=== PATIENT | male | born 1950 | race Caucasian/White ===

== ENCOUNTER 2017-02-06 12:49 | Emergency (ER) | payer OTHER ==
[~2017-02-06] VITALS: Ht 180.3 cm; Wt 104.3 kg
--- NOTE | 2017-02-06 13:38 | ED UPPER/LOWER EXTREMITY COMPL ---
History of Present Illness General Chief Complaint: Foot or Ankle Injury Stated Complaint: L FOOT INJURY Source: patient Exam Limitations: no limitations Vital Signs & Intake/Output Vital Signs & Intake/Output Vital Signs Date Time Temp Pulse Resp B/P B/P Pulse O2 O2 Flow FiO2 Mean Ox Delivery Rate 02/06 1518 98.4 69 18 171/79 100 Room Air 02/06 1253 99.2 79 18 153/87 98 Room Air Allergies Coded Allergies: NO KNOWN ALLERGIES (01/05/16) Reconcile Medications Amlodipine Besylate 5 MG TABLET 1 TAB PO QPM HEART (Reported) Cephalexin (Keflex) 500 MG CAPSULE 1 CAP PO BID CELLULITIS Sulfamethoxazole/Trimethoprim (Bactrim Ds Tablet) 800 MG-160 MG TABLET 1 TAB PO BID PRN CELLULITIS Triage Note: 66 YO MALE TO ER C/O L FOOT PAIN. STATES HE FELL LAST WEEK AND HIS L FOOT IS SWOLLEN AND RED NOW. Triage Nurses Notes Reviewed? yes Onset: Abrupt Duration: getting worse Timing: recent history Severity Numbers: 10 HPI: Patient is a 66-year-old male with a past medical history of hypertension and ascites who presents to emergency room stating that 1 week ago patient was ambulating upstairs where he accidentally struck the left dorsal aspect of his foot to the corner of a concrete step which he stops, he fell forward striking the left knee to the stairs. Patient presents to emergency room with complaints of worsening left knee ankle and foot pain and swelling and redness to the foot. Patient denies any shortness of breath cough fever chills. (LIZZETTE COLLINS) Past History Travel History Traveled to [place] past 21 day No Medical History Any Pertinent Medical History? see below for history Neurological: NONE EENT: NONE Cardiovascular: hypertension Respiratory: NONE Gastrointestinal: NONE Hepatic: NONE Renal: NONE Musculoskeletal: NONE Psychiatric: NONE Endocrine: NONE Blood Disorders: NONE Cancer(s): NONE WARP HANGER/Reproductive: NONE Surgical History Surgical History: non-contributory Psychosocial History What is your primary language Sri Lankan Tobacco Use: Never used Family History Hx Contributory? No (LIZZETTE COLLINS) Review of Systems Review of Systems Constitutional: Reports: no symptoms. EENTM: Reports: no symptoms. Respiratory: Reports: no symptoms. Cardiovascular: Reports: see HPI, peripheral edema. Gastrointestinal/Abdominal: Reports: no symptoms. Genitourinary: Reports: no symptoms. Musculoskeletal: Reports: see HPI, joint pain, joint swelling. Skin: Reports: see HPI, erythema. Neurological/Psychological: Reports: no symptoms. Hematologic/Endocrine: Reports: no symptoms. Immunological: Reports: no symptoms. All Other Systems: Reviewed and Negative (LIZZETTE COLLINS) Physical Exam Physical Exam General Appearance: no apparent distress, obese Neurologic/Tendon: normal sensation, normal motor functions, normal tendon functions, responds to pain, no evidence tendon injury Comments: HEENT: Normal EENT exam,. Neck: Supple, no lymphadenopathy, normal range of motion without pain or tenderness Back: Nontender, no CVA tenderness. Cardiovascular: Regular rate and rhythms no murmurs rubs or gallops, normal JVP Respiratory: Chest nontender. No respiratory distress.breath sounds clear to auscultation bilaterally Abdomen: Soft, nontender nondistended, no appreciable organomegaly. Normal bowel sounds. No ascites Extremity: Left knee-medial joint line tenderness and ecchymosis noted negative valgus stress test negative varus stress test negative anterior drawer test negative posterior drawer test mild decreased active range of motion Left ankle noted generalized swelling and generalized point tenderness noted Left foot dorsal aspect of foot noted erythema warmth and tenderness pedal pulse +2 dermatomes intact capillary refill less than 2 seconds GENERALIZED point tenderness noted Neuro: Alert oriented x3, motor sensory normal, Psych: Mood and affect is normal, memory and judgment is normal. (LIZZETTE COLLINS) Progress Differential Diagnosis: arterial insufficiency, cellulitis, CHF, compartment syndrome, contusion, dislocation, DVT, fracture, gout, septic arthritis, sprain, tendon injury Plan of Care: Orders Procedure Date/time Status COMPREHENSIVE METABOLIC PANEL 02/06 1353 Complete CBC WITHOUT DIFFERENTIAL 02/06 1353 Complete Laboratory Tests 02/06/17 1455: Anion Gap 11, Estimated GFR > 60, BUN/Creatinine Ratio 11.4, Glucose 91, Calcium 8.5, Total Bilirubin 2.3 H, AST 73 H, ALT 45, Alkaline Phosphatase 142 H, Total Protein 6.8, Albumin 3.6, Globulin 3.2, Albumin/Globulin Ratio 1.1, CBC w Diff NO MAN DIFF REQ, RBC 4.19 L, MCV 85.8, MCH 28.2, RDW 14.8 H, MPV 7.9, Gran % 72.2, Lymphocytes % 17.2 L, Monocytes % 8.1, Eosinophils % 2.1, Basophils % 0.4, Absolute Granulocytes 4.4, Absolute Lymphocytes 1.1 L, Absolute Monocytes 0.5, Absolute Eosinophils 0.1, Absolute Basophils 0, PUBS MCHC 32.8 L Ultrasound was unremarkable for DVT. X-rays are unremarkable for for osseous injury. Due to history of present illness and exam findings there is suspicion of left dorsal aspect of foot cellulitis. Surgical pen markings bordered the erythema Patient was afebrile no concerns of leukocytosis. Patient does state that he has a history of MRSA in which he'll be covered with Keflex and Bactrim. He is strongly advised to follow-up with primary care doctor or return to emergency room as discussed in disposition plan (DARIUS ARCHER,LIZZETTE) Diagnostic Imaging: Viewed by Me: Radiology Read. Radiology Impression: no acute abnormality, no fracture Comments: PATIENT: LISA BENAVIDEZ PRESENT AGE: 66 PATIENT ACCOUNT NO: [id number] : 52 LOCATION: [facility] ORDERING PHYSICIAN: LIZZETTE ARCHER SERVICE DATE: 02/06/17 EXAM TYPE: US - US-UNILATERAL VENOUS DOPPLER EXAMINATION: US TRIPLEX LOWER EXTREMITY, LEFT CLINICAL INFORMATION: Left lower extremity swelling. Evaluate for DVT. COMPARISON: No relevant prior imaging is available. TECHNIQUE: Color-flow triplex imaging with spectral analysis and compression Doppler were performed on the lower extremity. FINDINGS: The visualized common femoral vein, superficial femoral vein, profunda femoral vein, popliteal vein and midcalf peroneal and posterior tibial venous segments show no evidence of deep venous thrombosis. There is no Novoa's cyst. IMPRESSION: No evidence of deep venous thrombosis within the lower extremity. DICTATED BY: JOE CONNOR,DARIO Mac DATE/TIME DICTATED:02/06/171438 BATTERY HAND:RUTH DATE/TIME TRANSCRIBED:02/06/17 PATIENT: LISA BENAVIDEZ PRESENT AGE: 66 PATIENT ACCOUNT NO: [id number] : 52 LOCATION: [facility] ORDERING PHYSICIAN: LIZZETTE ARCHER SERVICE DATE: 02/06/17 EXAM TYPE: RAD - XRY-ANKLE 3 OR MORE VIEWS L; XRY-FOOT COMPLETE, LEFT; XRY-KNEE COMPLETE LEFT EXAMINATION: XR KNEE, ANKLE, FOOT, LEFT CLINICAL INFORMATION: Status post fall. COMPARISON: None TECHNIQUE: Four views of the left knee. 3 views of the ankle. 3 views foot. FINDINGS: Bone mineral density is maintained without evidence of fracture or dislocation. No focal osseous lesions are seen. Joint space is maintained without productive or erosive changes. There is mild soft tissue prominence in the ankle. There are mild degenerative changes in the foot most notably in the mid foot and first MTP joint with a small bunion with mild metatarsus primus varus with hallux is deformity. IMPRESSION: No acute fracture or dislocation is seen. DICTATED BY: NEFTALI TENORIO MD DATE/TIME DICTATED:02/06/171430 BATTERY HAND:RUTH DATE/TIME TRANSCRIBED:02/06/171430 (LIZZETTE COLLINS) Departure Departure Disposition: HOME OR SELF CARE Condition: Stable Clinical Impression Primary Impression: Cellulitis of left foot Referrals: ELOY CONNOR,Kevin PACK (PCP/Family) Additional Instructions: As discussed begin to elevate foot for swelling. Begin using the Dev wrap provided to the emergency room for swelling. Begin the prescription of BACTRIM and Keflex as directed. Prescription is waiting AT [facility]. If symptoms worsen or if YOU develop any new concerning symptoms or if the redness expands beyond the surgical pen markers boarded in the emergency room return to emergency room immediately. In 2 days if no better follow-up with primary care doctor or return to the emergency room. Departure Forms: Customer Survey General Discharge Information Prescriptions: Current Visit Scripts Cephalexin (Keflex) 1 CAP PO BID #20 CAP Sulfamethoxazole/Trimethoprim (Bactrim Ds Tablet) 1 TAB PO BID PRN CELLULITIS #20 TAB (LIZZETTE COLLINS) PA/[facility] Co-Sign Statement Statement: ED Attending supervision documentation- x I saw and evaluated the patient. I have also reviewed all the pertinent lab results and diagnostic results. I agree with the findings and the plan of care as documented in the PA's/[facility]'s documentation. [] I have reviewed the ED Record and agree with the PA's/[facility]'s documentation. [] Additions or exceptions (if any) to the PAs/[facility]'s note and plan are summarized below: [] (ARISTIDES CONNOR,MAITE)
[2017-02-06] MEDS ORDERED: AMLODIPINE BESYL5 M1 PO (13:45)
--- NOTE | 2017-02-06 14:39 | RADIOLOGY REPORT ---
EXAMINATION: XR KNEE, ANKLE, FOOT, LEFT CLINICAL INFORMATION: Status post fall. COMPARISON: None TECHNIQUE: Four views of the left knee. 3 views of the ankle. 3 views foot. FINDINGS: Bone mineral density is maintained without evidence of fracture or dislocation. No focal osseous lesions are seen. Joint space is maintained without productive or erosive changes. There is mild soft tissue prominence in the ankle. There are mild degenerative changes in the foot most notably in the mid foot and first MTP joint with a small bunion with mild metatarsus primus varus with hallux is deformity. IMPRESSION: No acute fracture or dislocation is seen.
--- NOTE | 2017-02-06 14:44 | ULTRASOUND REPORT ---
EXAMINATION: US TRIPLEX LOWER EXTREMITY, LEFT CLINICAL INFORMATION: Left lower extremity swelling. Evaluate for DVT. COMPARISON: No relevant prior imaging is available. TECHNIQUE: Color-flow triplex imaging with spectral analysis and compression Doppler were performed on the lower extremity. FINDINGS: The visualized common femoral vein, superficial femoral vein, profunda femoral vein, popliteal vein and midcalf peroneal and posterior tibial venous segments show no evidence of deep venous thrombosis. There is no Novoa's cyst. IMPRESSION: No evidence of deep venous thrombosis within the lower extremity.
[2017-02-06 15:02] LABS: ABSOLUTE BASOPHIL COUNT 0 /CUMM (0.0-0.2); ABSOLUTE EOSINOPHIL COUNT 0.1 /CUMM (0.0-0.7); ABSOLUTE GRANULOCYTE CT 4.4 /CUMM (1.4-6.5); ABSOLUTE LYMPH COUNT 1.1 /CUMM (1.2-3.4); ABSOLUTE MONOCYTE COUNT 0.5 /CUMM (0.10-0.60); BASOPHIL % 0.4 % (0.0-2.0); EOSINOPHIL % 2.1 % (0-5); GRANULOCYTE % 72.2 % (42.2-75.2); HEMATOCRIT 35.9 % (42-52); MEAN CORPUSCULAR HGB 28.2 PG (27.0-31.0); MEAN CORPUSCULAR HGB CONC 32.8 G/DL (33.0-37.0); MEAN CORPUSCULAR VOLUME 85.8 FL (80.0-94.0); MEAN PLATELET VOLUME 7.9 FL (7.4-10.4); PLATELET COUNT 122 /CUMM (130-400); RBC DISTRIBUTION WIDTH 14.8 % (11.5-14.5); RED BLOOD CELL CT 4.19 /CUMM (4.70-6.10); WHITE BLOOD CELL COUNT 6.2 /CUMM (4.8-10.8)
[2017-02-06 15:18] VITALS: BP 171/79
[2017-02-06] MEDS ORDERED: KEFLEX500 M1 PO (15:47)
[2017-02-06] MEDS ORDERED: BACTRIM DS TAB1 EACH PO (15:47)
== END 2017-02-06 16:12 ==
LOC: ERH 12:49
PROVIDERS: Physician Assistant
DX: L03.116 Cellulitis of left lower limb (principal)
CPT/HCPCS: 73562-LT; 73610-LT; 73630-LT

== ENCOUNTER 2018-01-01 12:04 | Emergency (ER) | payer OTHER ==
[~2018-01-01] VITALS: Ht 177.8 cm; Wt 113.4 kg
[~2018-01-01 12:04] MED LIST: AMLODIPINE BESYL5 M1 PO; BACTRIM DS TAB1 EACH PO; KEFLEX500 M1 PO
--- NOTE | 2018-01-01 12:32 | ED GI/GU/ABDOMINAL COMPLAINT ---
History of Present Illness General Chief Complaint: Abdominal Pain/Flank Pain Stated Complaint: ABD DISTENSION, HX OF SAME, MULTIPLE DRAINAGES Source: patient Exam Limitations: no limitations Vital Signs & Intake/Output Vital Signs & Intake/Output Vital Signs Date Time Temp Pulse Resp B/P B/P Pulse O2 O2 Flow FiO2 Mean Ox Delivery Rate 01/01 1747 98.0 70 18 128/70 97 Room Air 01/01 1630 74 18 120/67 98 01/01 1245 Room Air 01/01 1217 96.3 83 15 146/73 99 Room Air Room Air Allergies Coded Allergies: No Known Allergies (01/01/18) Reconcile Medications Amlodipine Besylate 5 MG TABLET 1 TAB PO QPM HEART (Reported) Aspirin (Aspirin*) 81 MG TAB.CHEW 1 TAB PO DAILY HEART HEALTH (Reported) Furosemide 40 MG TABLET 2 TAB PO DAILY WATER RETENTION (Reported) Spironolactone 100 MG TABLET 2 TAB PO DAILY WATER RETENTION (Reported) Triage Nurses Notes Reviewed? yes Onset: Gradual Duration: getting worse Timing: recent history Quality/Severity: fullness, moderate Location: generalized abdomen HPI: Patient is a 67-year-old male with a past medical history of ascites due to alcoholism and hypertension who presents emergency room stating that his gastric urologist is at [facility] where he has a TIPS procedure scheduled for the first week in January patient states that he therapeutically gets a paracentesis every 2-3 weeks by interventional radiologist Dr. Conor haywood last Pap was approximately 5-6 weeks ago where patient thought that "I could get by" until his TIPS procedure however he presents emergency room with concerns of shortness of breath and abdominal distention Patient can tolerate by mouth however is diligent with his by mouth intake due to his abdominal distention denies any fever chills back pain dysuria chest pain Denies any alcohol use (Goyo Monaco) Past History Travel History Traveled to [place] past 21 day No Medical History Any Pertinent Medical History? see below for history Neurological: NONE EENT: NONE Cardiovascular: hypertension Respiratory: NONE Gastrointestinal: ASCITES FREQUENT PARACENTESIS Hepatic: FATTY LIVER ALCOHOLIC SCEROSIS (DENIES ETOH USE NOW) Renal: NONE Musculoskeletal: NONE Psychiatric: NONE Endocrine: NONE Blood Disorders: NONE Cancer(s): NONE EMT/DISPATCHER/Reproductive: NONE Surgical History Surgical History: non-contributory Psychosocial History What is your primary language Mongolian Tobacco Use: Never used ETOH Use: denies use Illicit Drug Use: denies illicit drug use Family History Hx Contributory? No (Goyo Monaco) Review of Systems Review of Systems Constitutional: Reports: no symptoms. EENTM: Reports: no symptoms. Respiratory: Reports: see HPI, short of breath. Cardiovascular: Reports: no symptoms. GI: Reports: see HPI. Genitourinary: Reports: no symptoms. Musculoskeletal: Reports: no symptoms. Skin: Reports: no symptoms. Neurological/Psychological: Reports: no symptoms. Hematologic/Endocrine: Reports: no symptoms. Immunologic/Allergic: Reports: no symptoms. All Other Systems: Reviewed and Negative (Goyo Monaco) Physical Exam Physical Exam General Appearance: no apparent distress, alert, comfortable Head: atraumatic Eyes: Bilateral: normal appearance. Ears, Nose, Throat, Mouth: moist mucous membrane Neck: normal inspection, supple Respiratory: normal breath sounds, chest non-tender, no respiratory distress Gastrointestinal: normal bowel sounds, non-tender, distention Neurologic/Psych: no motor/sensory deficits, awake, alert, oriented x 3 Skin: intact, normal color, warm/dry Core Measures ACS in differential dx? No Sepsis Present: No Sepsis Focused Exam Completed? No (Goyo Monaco) Progress Differential Diagnosis: AAA, AMI, appendicitis, biliary colic, bowel obstruction , colon cancer, cholecystitis, diverticulitis, esophageal varices, gastritis, hepatitis, hernia, hemorrhoids, ischemic bowel, inflamm bowel dis, orchitis, pancreatitis, prostatitis, peptic ulcer, PUD/GERD, perforated viscous, pyelonephritis, SBO Plan of Care: Orders Procedure Date/time Status AMMONIA LEVEL 01/01 1235 Complete TROPONIN LEVEL 01/01 1218 Complete EKG 01/01 1218 Active COMPREHENSIVE METABOLIC PANEL 01/01 1215 Complete CBC WITHOUT DIFFERENTIAL 01/01 1215 Complete Laboratory Tests 01/01/18 1238: Troponin I < 0.01 01/01/18 1238: Ammonia 54 H 01/01/18 1238: Anion Gap 12, Estimated GFR > 60, BUN/Creatinine Ratio 15.6, Glucose 94, Calcium 8.7, Total Bilirubin 1.3, AST 45, ALT 34, Alkaline Phosphatase 151 H, Total Protein 6.6, Albumin 3.4 L, Globulin 3.2, Albumin/Globulin Ratio 1.1, CBC w Diff NO MAN DIFF REQ, RBC 4.27 L, MCV 75.6 L, MCH 24.8 L, MCHC 32.8 L, RDW 18.9 H, MPV 8.2, Gran % 68.6, Lymphocytes % 17.4 L, Monocytes % 11.2 H, Eosinophils % 1.9, Basophils % 0.9, Absolute Granulocytes 3.9, Absolute Lymphocytes 1.0 L, Absolute Monocytes 0.6, Absolute Eosinophils 0.1, Absolute Basophils 0.1 PATIENT: LISA BENAVIDEZ PRESENT AGE: 67 PATIENT ACCOUNT NO: [id number] : 52 LOCATION: [facility] ORDERING PHYSICIAN: Joceline ARCHER SERVICE DATE: 01/01/18 EXAM TYPE: RAD - XRY-CHEST XRAY, TWO VIEWS EXAMINATION: XR CHEST CLINICAL INFORMATION: Ascites with dyspnea. Rule out effusion. COMPARISON: CT dated 03/06/2013 TECHNIQUE: AP and lateral views of the chest. AP view is lordotic. FINDINGS: Lungs are clear. No consolidation, pneumothorax, or pleural effusion. Cardiac and mediastinal contours are normal. Pulmonary vasculature is unremarkable. Degenerative changes are present at the right distal clavicle. Osseous structures otherwise unremarkable. IMPRESSION: No pleural effusion. No acute pulmonary findings. DICTATED BY: Kevin Cantu MD DATE/TIME DICTATED:01/01/181255 GERIATRIC PERSONAL CARE AIDE:RUTH DATE/TIME TRANSCRIBED:01/01/181255 Patient currently is resting comfortably at bedside alert and oriented no signs of encephalopathy No concerns of SBP Patient will receive therapeutic paracentesis by interventional radiology He was given albumin supplementation Patient was strongly advised to follow-up with IR for another scheduled paracentesis before his TIPS procedure 1654- patient received paracentesis in which 18.5 L were removed per interventional radiology patient currently is receiving albumin replenishment patient has significant resolution of his distention and shortness of breath. Patient has nontender abdomen Again he was strongly advised to continue with his scheduling of his paracentesis and to follow-up with his gastrologist for the TIPS procedure Upon discharge patient looks well no apparent distress patient received his course of albumin Diagnostic Imaging: Viewed by Me: Radiology Read. Radiology Impression: no acute abnormality, no fracture CXR Impression: no acute abnormality, no infiltrates Initial ED EKG: none Comments: PATIENT: LISA BENAVIDEZ PRESENT AGE: 67 PATIENT ACCOUNT NO: [id number] : 52 LOCATION: [facility] ORDERING PHYSICIAN: Joceline ARCHER SERVICE DATE: 01/01/18 EXAM TYPE: RAD - XRY-CHEST XRAY, TWO VIEWS EXAMINATION: XR CHEST CLINICAL INFORMATION: Ascites with dyspnea. Rule out effusion. COMPARISON: CT dated 03/06/2013 TECHNIQUE: AP and lateral views of the chest. AP view is lordotic. FINDINGS: Lungs are clear. No consolidation, pneumothorax, or pleural effusion. Cardiac and mediastinal contours are normal. Pulmonary vasculature is unremarkable. Degenerative changes are present at the right distal clavicle. Osseous structures otherwise unremarkable. IMPRESSION: No pleural effusion. No acute pulmonary findings. DICTATED BY: Kevin Cantu MD DATE/TIME DICTATED:01/01/181255 GERIATRIC PERSONAL CARE AIDE:RUTH DATE/TIME TRANSCRIBED:01/01/181255 (Goyo Monaco) Departure Departure Disposition: HOME OR SELF CARE Condition: Stable Clinical Impression Primary Impression: Ascites Referrals: Elizabeth CONNOR,Kevin Piña (PCP/Family) Additional Instructions: As discussed follow-up with your interventional radiologist Dr. Perdomo to schedule another scheduled paracentesis prior to your TIPS procedure in a month. If symptoms worsen or if YOU develop new concerning symptom return to emergency room. Departure Forms: Customer Survey General Discharge Information (Goyo Monaco) PA/[facility] OPER[facility] Co-Sign Statement Statement: ED Attending supervision documentation- [] I saw and evaluated the patient. I have also reviewed all the pertinent lab results and diagnostic results. I agree with the findings and the plan of care as documented in the PA's/[facility] M[employer] OPERATOR's documentation. [x] I have reviewed the ED Record and agree with the PA's/[employer] M[employer] OPERATOR's documentation. [] Additions or exceptions (if any) to the PAs/[facility] OPERATOR's note and plan are summarized below: [] (Alexi Billy DO)
[2018-01-01 12:48] LABS: ABSOLUTE BASOPHIL COUNT 0.1 /CUMM (0.0-0.2); ABSOLUTE EOSINOPHIL COUNT 0.1 /CUMM (0.0-0.7); ABSOLUTE GRANULOCYTE CT 3.9 /CUMM (1.4-6.5); ABSOLUTE MONOCYTE COUNT 0.6 /CUMM (0.10-0.60); BASOPHIL % 0.9 % (0.0-2.0); EOSINOPHIL % 1.9 % (0-5); HEMATOCRIT 32.3 % (42-52); MEAN CORPUSCULAR HGB 24.8 PG (27.0-31.0); MEAN CORPUSCULAR HGB CONC 32.8 G/DL (33.0-37.0); MEAN CORPUSCULAR VOLUME 75.6 FL (80.0-94.0); MEAN PLATELET VOLUME 8.2 FL (7.4-10.4); PLATELET COUNT 139 /CUMM (130-400); RBC DISTRIBUTION WIDTH 18.9 % (11.5-14.5); RED BLOOD CELL CT 4.27 /CUMM (4.70-6.10); WHITE BLOOD CELL COUNT 5.8 /CUMM (4.8-10.8)
[2018-01-01 12:51] LABS: GRANULOCYTE % 68.6 % (42.2-75.2)
--- NOTE | 2018-01-01 13:02 | RADIOLOGY REPORT ---
EXAMINATION: XR CHEST CLINICAL INFORMATION: Ascites with dyspnea. Rule out effusion. COMPARISON: CT dated 03/06/2013 TECHNIQUE: AP and lateral views of the chest. AP view is lordotic. FINDINGS: Lungs are clear. No consolidation, pneumothorax, or pleural effusion. Cardiac and mediastinal contours are normal. Pulmonary vasculature is unremarkable. Degenerative changes are present at the right distal clavicle. Osseous structures otherwise unremarkable. IMPRESSION: No pleural effusion. No acute pulmonary findings.
[2018-01-01] MEDS ORDERED: SPIRONOLACTONE100 M1 PO (13:23)
[2018-01-01] MEDS ORDERED: ASPIRIN81 M4 PO (13:23)
[2018-01-01] MEDS ORDERED: FUROSEMIDE40 M1 PO (13:24)
--- NOTE | 2018-01-01 16:51 | ULTRASOUND REPORT ---
CLINICAL HISTORY: This patient is a 67 years old Male with ascites found on physical exam, who is referred to Interventional Radiology for ultrasound-guided paracentesis. PROCEDURE: Ultrasound-guided paracentesis. PHYSICIANS: Dr. Bety Escalona (attending). MEDICATIONS: 5 mL of 1% lidocaine SQ. COMPLICATIONS: None ESTIMATED BLOOD LOSS: <5 mL SPECIMENS: None IMPLANT: None. SITE MARKING: As part of the preprocedure verification policy, a site marking procedure was initiated. Due to the nature the procedure, the insertion site could not be predetermined thus invoking the policy of exemption to site laterality and marking. Insertion site marking was performed in the procedure room in conjunction with imaging confirmation. PROCEDURE NOTE: Informed consent was obtained from the patient prior to the procedure. During this process, the procedure and potential alternatives were explained along with the intended outcome and benefits. The risks of the procedure, including the possibility of an unsuccessful procedure, as well as the risk of not doing the procedure, were discussed. The patient was given the opportunity to ask questions regarding the procedure and appeared competent to make decisions. A signed consent form documenting this discussion was placed in the medical record. A time-out procedure was performed. Appropriate preprocedure medical history and imaging studies were reviewed. The patient was brought to the ultrasound room and placed in the supine position. A time-out procedure was performed. Ultrasound images of the abdomen were obtained to localize a large collection of ascites. Images were permanently saved to the record. An area of the right lower quadrant was prepped and draped in the standard sterile fashion. All elements of maximal sterile barrier technique followed including use of cap, mask, sterile gown, sterile gloves, a sterile full body drape and hand hygiene. Also followed skin preparation with 2% chlorhexidine for cutaneous antisepsis, and sterile ultrasound preparation with sterile gel and probe cover when applicable. 10 mL of 1% lidocaine was used to obtain local anesthesia of the skin and deeper tissues. A standard small-bore needle was introduced to sample fluid and demonstrated a safe access route. There was no evidence of traversing adjacent organs or vascular structures. A 6-Fr [id number] closed needle/catheter system was utilized for access. 18.6 L of cloudy straw-colored fluid was aspirated before drainage ceased. The catheter was removed and sterile dressing applied. The patient tolerated the procedure well without evidence of complications. FINDINGS: Large minimally complex abdominal ascites as detailed above. IMPRESSION: Successful ultrasound-guided therapeutic paracentesis. PLAN: The patient was stable after the procedure. The patient will be return to the emergency room.
[2018-01-01 17:47] VITALS: BP 128/70
== END 2018-01-01 17:48 ==
LOC: ERH 12:04
PROVIDERS: Physician Assistant
DX: R18.8 Other ascites (principal)
CPT/HCPCS: 4007; 71046; 93005; 93010; J2001; J3490; P9047

== ENCOUNTER 2018-03-05 22:36 | Emergency (ER) | payer OTHER ==
[~2018-03-05 22:36] MED LIST changes: +ASPIRIN81 M4 PO; +FUROSEMIDE40 M1 PO; +SPIRONOLACTONE100 M1 PO
--- NOTE | 2018-03-06 00:18 | ED GENERAL ADULT ---
History of Present Illness General Chief Complaint: General Adult Stated Complaint: "FEVER" Source: patient Exam Limitations: no limitations Vital Signs & Intake/Output Vital Signs & Intake/Output Vital Signs Date Time Temp Pulse Resp B/P B/P Pulse O2 O2 Flow FiO2 Mean Ox Delivery Rate 03/06 0428 99.5 90 20 104/57 95 Room Air 03/06 0259 99.4 86 20 111/52 95 Room Air 03/06 0019 99.4 89 20 116/58 95 Room Air 03/05 2242 99.8 98 18 129/61 96 Room Air Allergies Coded Allergies: No Known Allergies (03/03/18) Reconcile Medications Amlodipine Besylate 5 MG TABLET 1 TAB PO QPM HEART (Reported) Aspirin (Aspirin*) 81 MG TAB.CHEW 1 TAB PO DAILY HEART HEALTH (Reported) Cephalexin (Keflex) 500 MG CAPSULE 1 CAP PO TID WOUND Furosemide 40 MG TABLET 2 TAB PO DAILY WATER RETENTION (Reported) Spironolactone 100 MG TABLET 2 TAB PO DAILY WATER RETENTION (Reported) Triage Note: PT TO TRIAGE S/P SURGERY/PROCEDURE ?PARACENTESIS. TODAY PT STATES CP, SOB, WEAKNESS AND FEVER, TEMP 99.8 IN TRIAGE. A/OX3. Triage Nurses Notes Reviewed? yes HPI: Patient is a 67 YOM with a past medical history significant for alcoholic cirrhosis, degenerative joint disease, hypertension, umbilical hernia, EtOH abuse presented to the emergency department for fever. Patient had TIPS procedure done yesterday at [facility]. 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 He was feeling well. He did not have an appetite for dinner. He started having chills that around 9 PM. He checked his fever it was 103F. The patient drove to the emergency department at [place]. He states right hypochondrial mild pain. Patient does not report any cough, chest pain, shortness of breath, dysuria, headaches, arthralgia, myalgia. Of note, pt refused CT abd and is eager to go home. He agreed later. (Denise CONNOR,[facility]) Past History Travel History Traveled to [place] past 21 day No Medical History Any Pertinent Medical History? 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 Yes (Sommer Walker MD) Review of Systems Review of Systems Constitutional: Reports: see HPI, chills, fever. EENTM: Reports: no symptoms. Respiratory: Reports: no symptoms. Cardiovascular: Reports: no symptoms. GI: Reports: no symptoms. Genitourinary: Reports: no symptoms. Musculoskeletal: Reports: no symptoms. Skin: Reports: no symptoms. Neurological/Psychological: Reports: no symptoms. Hematologic/Endocrine: Reports: no symptoms. Immunologic/Allergic: Reports: no symptoms. (Sommer Walker MD) Review of Systems All Other Systems: Reviewed and Negative (Felix Santamaria MD) Physical Exam Physical Exam General Appearance: well developed/nourished, no apparent distress, alert, awake , comfortable, distended abdomen Head: atraumatic, normal appearance Eyes: Bilateral: normal appearance, EOMI. Ears, Nose, Throat: normal pharynx, hearing grossly normal Neck: normal inspection Respiratory: normal breath sounds, no respiratory distress, lungs clear Cardiovascular: regular rate/rhythm Peripheral Pulses: 4+ radial (R), 4+ radial (L) Gastrointestinal: distention, tenderness Extremities: pedal edema Neurologic/Psych: no motor/sensory deficits, awake, alert, oriented x 3, normal mood/affect, carton catcher II-XII nml as tested Core Measures ACS in differential dx? No CVA/TIA Diagnosis: No Sepsis Present: No Sepsis Focused Exam Completed? Yes (Sommer Walker MD) Physical Exam Back: normal inspection, normal range of motion Reflexes: 2+: bicep (R), bicep (L). Skin: intact, normal color (Felix Santamaria MD) Progress Differential Diagnoses I considered the following diagnoses in my evaluation of the patient: Plan of Care: Orders Procedure Date/time Status INCENTIVE SPIROMETRY TRX (GEN) 03/06 423 Active URINALYSIS 03/06 59 Active PARTIAL THROMBOPLASTIN TIME 03/06 59 Complete PROTHROMBIN TIME 03/06 59 Complete DIRECT BILIRUBIN 03/06 59 Complete COMPREHENSIVE METABOLIC PANEL 03/06 59 Complete CBC WITHOUT DIFFERENTIAL 03/06 59 Complete AMMONIA LEVEL 03/06 005 Complete EKG 03/05 2243 Active Laboratory Tests 03/06/18 0146: Anion Gap 7, Estimated GFR > 60, BUN/Creatinine Ratio 15.5, Glucose 93, Calcium 8.0 L, Total Bilirubin 2.0 H, Direct Bilirubin 0.9 H, AST 1219 H, ALT 387 H , Alkaline Phosphatase 268 H, Ammonia < 9 L, Total Protein 5.5 L, Albumin 2.7 L, Globulin 2.8, Albumin/Globulin Ratio 1.0 L, PT 20.1 H, INR 1.83 H, APTT 31, CBC w Diff MAN DIFF ORDERED, RBC 3.86 L, MCV 70.0 L, MCH 22.2 L, MCHC 31.7 L, RDW 17.8 H, MPV 8.0, Gran % 79.0 H, Lymphocytes % 8.6 L, Monocytes % 12.4 H, Eosinophils % 0, Basophils % 0, Absolute Granulocytes 17.1 H, Segmented Neutrophils 79 H, Absolute Lymphocytes 1.9, Lymphocytes 6 L, Monocytes 14 H, Absolute Monocytes 2.7 H, Absolute Eosinophils 0, Basophils 1, Absolute Basophils 0, Platelet Estimate ADEQUATE, Polychromasia 1+, Hypochromic- Microcytic 1+, Poikilocytosis 2+, Basophilic Stippling SLIGHT, Anisocytosis 2+, Microcytic Cells 2+, Ovalocytes 1+, Stomatocytes 1+, Fld Total RBCs Counted 100 Initial ED EKG: normal sinus rhythm Prior EKG: unchanged (Denise CONNOR,Sommer) Differential Diagnoses I considered the following diagnoses in my evaluation of the patient: (Hina CONNOR,Felix) Departure Departure Additional Instructions: -Please use spirometer as directed -Please visit your nearest emergency department if you have any of these: Chest pain, shortness of breath, cough, palpitations, fever, chills, abdominal pain, dizziness, lightheadedness -Please make an appointment with your primary care doctor -Please make an appointment with your c consultant Departure Forms: Customer Survey General Discharge Information (Denise CONNOR,Sommer) Departure Time of Disposition: 441 Disposition: HOME OR SELF CARE Condition: Stable Clinical Impression Primary Impression: Fever Secondary Impressions: Atelectasis, Leukocytosis Referrals: Arik CONNOR,Dion Johnson MD,MAlexandre Piña (PCP/Family) Resident Co-Sign Statement Statement: ED Attending supervision documentation- x I saw and evaluated the patient. I have also reviewed all the pertinent lab results and diagnostic results. I agree with the findings and the plan of care as documented in the Resident's documentation. Patient declines hospitalization as no significant pathology was found. Made aware of risk and complication including sepsis, . He accepts and acknowledges. [] I have reviewed the ED Record and agree with the Resident's documentation. [] Additions or exceptions (if any) to the Resident's note and plan are summarized below: [] (Hina CONNOR,Felix) Critical Care Note Critical Care Note Critical Care Time: non-applicable (Denise CONNOR,Sommer) ED Attending Observation Initial Observation Note: I have seen and personally examined LISA BENAVIDEZ on 03/06/18 at 0142. I agree with the current emergency department documentation. The disposition (admission or discharge) is uncertain at this time, he needs a period of observation for the following reason(s): fever. Post op Day 1 (TIPS procedure) The ED Nurse caring for this patient has been personally informed as to what the patient is being observed for. (Sommer Walker MD)
--- NOTE | 2018-03-06 01:32 | RADIOLOGY REPORT ---
EXAMINATION: XR CHEST CLINICAL INFORMATION: Fever COMPARISON: 01/01/2018 TECHNIQUE: 2 views of the chest were obtained. FINDINGS: Low lung volumes. No consolidation, edema, or effusion. No pneumothorax. Bronchial wall thickening. The cardiomediastinal silhouette is unchanged. No acute osseous abnormality. IMPRESSION: No dense consolidation. Bronchial wall thickening can be seen with a small airways process such as asthma or atypical/viral infection.
[2018-03-06 01:57] LABS: ABSOLUTE BASOPHIL COUNT 0 /CUMM (0.0-0.2); ABSOLUTE EOSINOPHIL COUNT 0 /CUMM (0.0-0.7); ABSOLUTE GRANULOCYTE CT 17.1 /CUMM (1.4-6.5); ABSOLUTE LYMPH COUNT 1.9 /CUMM (1.2-3.4); ABSOLUTE MONOCYTE COUNT 2.7 /CUMM (0.10-0.60); BASOPHIL % 0 % (0.0-2.0); EOSINOPHIL % 0 % (0-5); MEAN CORPUSCULAR HGB 22.2 PG (27.0-31.0); MEAN CORPUSCULAR HGB CONC 31.7 G/DL (33.0-37.0); PLATELET COUNT 164 /CUMM (130-400); RBC DISTRIBUTION WIDTH 17.8 % (11.5-14.5); RED BLOOD CELL CT 3.86 /CUMM (4.70-6.10); WHITE BLOOD CELL COUNT 21.6 /CUMM (4.8-10.8)
[2018-03-06 02:07] LABS: PT 20.1 SEC (9.4-12.5); PTT 31 SEC (25-37)
--- NOTE | 2018-03-06 03:36 | CT SCAN REPORT ---
EXAMINATION: CT ABDOMEN AND PELVIS WITH CONTRAST CLINICAL INFORMATION: Fever COMPARISON: 03/06/2013 TECHNIQUE: Multidetector volumetric imaging was performed of the abdomen and pelvis following IV administration of 95 mL of Optiray 320 intravenous contrast. Sagittal and coronal reformatted images were obtained on the technologist's workstation. DLP: 935 mGy-cm FINDINGS: LUNG BASES: Bibasilar subsegmental atelectasis. The visualized cardiac structures are unremarkable. LIVER, GALLBLADDER, AND BILIARY TREE: Status post TIPS procedure. There is regional hypoattenuation involving segments 6 and 7 of the liver, suggestive of an area of fatty infiltration. Normal shape of the liver. No focal lesions. The gallbladder is unremarkable with no evidence of radiopaque gallstones, gallbladder wall thickening, or obvious pericholecystic inflammatory changes. PANCREAS: Unremarkable. SPLEEN: Unremarkable. ADRENAL GLANDS: Unremarkable. KIDNEYS AND URETERS: The kidneys are normal in size, shape, and attenuation. No hydronephrosis, hydroureter, or calculi seen. No perinephric stranding. Left upper pole renal cyst. BLADDER: Unremarkable. GASTROINTESTINAL TRACT: The stomach is unremarkable. The small bowel is normal in caliber. No obstruction. No colonic wall thickening or inflammatory change. No free air. Large volume ascites. ABDOMINAL WALL: No significant hernia is appreciated. LYMPH NODES: Normal. VASCULAR: Normal caliber aorta. Mild atherosclerotic calcifications. PELVIC VISCERA: The prostate and seminal vesicles are unremarkable. OSSEOUS STRUCTURES: No acute or suspicious osseous abnormality. Degenerative changes of the spine. IMPRESSION: Large volume of ascites. Status post TIPS procedure. Regional hypoattenuation in the right lobe of the liver suggestive of fatty infiltration.
[2018-03-06 04:28] VITALS: BP 104/57
== END 2018-03-06 04:49 ==
LOC: ERH 22:36
PROVIDERS: Internal Medicine
DX: D72.829 Elevated white blood cell count, unspecified (principal); J98.11 Atelectasis; R50.9 Fever, unspecified; R07.9 Chest pain, unspecified
CPT/HCPCS: 71046; 74177; 93005; 93010